=== PATIENT | female | born 1990 | race African-American/Black ===

== ENCOUNTER → 2018-11-16 | Outpatient (CLI) | payer OTHER ==
[~2018-11-16] MED LIST: IOHEXOL 240 MG/ML 50ML VIAL. PO ONE; IOHEXOL 300 MG/ML 100ML VIAL. IV ONE
[2018-11-16 10:18] LABS: CREATININE 0.7 mg/dL (0.6-1.0); GFR 119.7
--- NOTE | 2018-11-16 14:58 | RAD ---
CT ABD PELV W/ORAL IV CONTRAST Indication: VENTRAL HERNIA INJ 75ML OMNI 300 NO PREV Exposure: One or more of the following individualized dose reduction techniques were utilized for this examination: 1. Automated exposure control 2. Adjustment of the mA and/or kV according to patient size 3. Use of iterative reconstruction technique. Comparison: None are available. Contrast: Intravenous contrast was given. Oral contrast was given. FINDINGS: Lower thorax: Lung bases are clear. Liver: Unremarkable Spleen: Unremarkable Pancreas: Unremarkable Adrenals: No evidence of mass. Kidneys: Small hypodense lesion lower pole right kidney measures 12 mm, too small to accurately characterize, but may represent a cyst. Urinary tracts: No hydronephrosis. Gallbladder: No calcified stone Lymph nodes: No significant enlargement Vessels: Aorta is nonaneurysmal. GI tract: No evidence of acute colitis. No evidence of bowel obstruction. Appendix is normal. Reproductive organs: Low densities in the adnexa, largest on the left measures 22 mm, compatible with a cyst. Urinary bladder: Unremarkable. Peritoneum: No evidence of pneumoperitoneum. No free fluid. Abdominal wall: Thinning of the anterior abdominal wall with protruding mesenteric fat and bowel, but no focal or narrow necked herniation. Spine: Vertebral body height and alignment are intact. Bones: No destructive process identified. External Soft Tissue: No acute findings. IMPRESSION: 1. Thinning of the anterior abdominal wall at the midline with a broad necked protrusion of mesenteric fat and bowel. 2. Small indeterminant lesion at the lower pole the right kidney, may represent a cyst. Electronically signed by: Andrey Lange MD (11/16/2018 2:55 PM) [facility]
== END | disposition home or self-care (01) ==
LOC: CT 09:13
PROVIDERS: ATTEND Surgery
DX: K43.9 Ventral hernia without obstruction or gangrene (principal); N28.89 Other specified disorders of kidney and ureter
CPT/HCPCS: 36415; 74177; 82565; 84520; Q9966; Q9967

== ENCOUNTER → 2019-08-25 | Outpatient (CLI) | payer MEDICAID, OTHER ==
--- NOTE | 2019-08-25 13:17 | RAD ---
EXAM: Abdomen sonogram. HISTORY: Pain. TECHNIQUE: Sonographic imaging of the abdomen was performed. COMPARISON: None. FINDINGS: The liver is enlarged. There is hepatic steatosis. No focal hepatic lesion is seen. The common bile duct is normal in caliber. The gallbladder is unremarkable. The right kidney is partially obscured due to body habitus. There is no hydronephrosis. The pancreas, spleen and inferior cava are unremarkable. There is aortic atherosclerosis. IMPRESSION: 1. Hepatomegaly and hepatic steatosis. 2. Suboptimal evaluation of the right kidney due to body habitus. Electronically signed by: Chichi Araujo MD (08/25/2019 1:14 PM) [id number]
== END | disposition home or self-care (01) ==
LOC: US 12:04
PROVIDERS: ATTEND Family Medicine
DX: R16.0 Hepatomegaly, not elsewhere classified (principal); K76.0 Fatty (change of) liver, not elsewhere classified; I70.0 Atherosclerosis of aorta
CPT/HCPCS: 76700

== ENCOUNTER → 2020-02-09 | Outpatient (CLI) | payer MEDICAID, OTHER ==
[2020-02-09 13:56] LABS: BASO % 1 % (0-3); EOS # 0.1 x10^3/uL (0.0-0.7); EOS % 2 % (0-3); HEMATOCRIT 32.4 % (36.0-47.0); HEMOGLOBIN 10.4 g/dL (12.0-15.5); LYMPH % 31 % (24-48); MEAN CORPUSCULAR HEMOGLOBIN 24 pg (25-35); MEAN CORPUSCULAR HGB CONC 32 g/dL (31-37); MEAN CORPUSCULAR VOLUME 74 fL (79-100); MONO # 0.5 x10^3/uL (0.0-1.1); MONO % 8 % (0-9); NEUT # 3.7 x10^3/uL (1.8-7.7); NEUT % 58 % (31-73); PLATELET COUNT 375 x10^3/uL (140-400); RED BLOOD COUNT 4.39 x10^6/uL (3.50-5.40); RED CELL DISTRIBUTION WIDTH 16.4 % (11.5-14.5); WHITE BLOOD COUNT 6.3 x10^3/uL (4.0-11.0)
== END | disposition home or self-care (01) ==
LOC: LAB 13:15
PROVIDERS: ATTEND Obstetrics & Gynecology
DX: O34.219 Maternal care for unspecified type scar from previous cesarean delivery (principal); Z3A.00 Weeks of gestation of pregnancy not specified
CPT/HCPCS: 36415; 81220; 85025; 85660; 86592; 86703; 86762; 86850; 86900; 86901; 87340

== ENCOUNTER → 2020-05-17 | Outpatient (CLI) | payer OTHER ==
--- NOTE | 2020-05-17 14:13 | RAD ---
EXAM: Obstetrics sonogram. HISTORY: Uterine size and dates discrepancy. TECHNIQUE: Sonographic imaging of a gravid uterus was performed. COMPARISON: None. FINDINGS: There is a single intrauterine fetus in breech presentation with a normal heart rate of 160 bpm. There is a three-vessel umbilical cord. There is a four-chamber heart. stomach, kidneys, bladder, spine and brain are unremarkable. The cervix is closed and measures 5.3 cm in length. The amniotic fluid index is normal at 10.6 cm. There is a posterior placenta without evidence of placenta previa. The biparietal diameter is 4.99 cm, corresponding with 21 weeks and 1 day. The head circumference is 18.27 cm, corresponding with 20 weeks and 5 days. The abdominal circumference is 15.63 cm, corresponding with 20 weeks and 6 days. The femoral length is 3.66 cm, corresponding with 21 weeks and 4 days. The estimated gestational age patient combined also measurements is 21 weeks and 1 day and estimated weight is 401 g. IMPRESSION: Single intrauterine fetus in breech presentation with a normal heart rate and gestational age based on ultrasound measurements of 21 weeks and 1 day. Electronically signed by: Chichi Araujo MD (05/17/2020 2:10 PM) [facility]
== END ==
LOC: US 11:54
PROVIDERS: ATTEND Obstetrics & Gynecology
DX: O32.1XX0 Maternal care for breech presentation, not applicable or unspecified (principal); Z3A.21 21 weeks gestation of pregnancy
CPT/HCPCS: 76805

== ENCOUNTER → 2020-07-12 | Outpatient (CLI) | payer OTHER | END | disposition home or self-care (01) | LOC: LAB 12:02 | PROVIDERS: ATTEND Obstetrics & Gynecology | DX: O09.90 Supervision of high risk pregnancy, unspecified, unspecified trimester (principal); Z3A.00 Weeks of gestation of pregnancy not specified | CPT/HCPCS: 36415; 82950 ==

== ENCOUNTER 2021-08-11 08:58 | Emergency (ER) | payer OTHER | END 2021-08-11 11:18 | disposition left against medical advice (07) | LOC: ER 08:58 | DX: T78.40XA Allergy, unspecified, initial encounter (principal); Z53.21 Procedure and treatment not carried out due to patient leaving prior to being seen by health care provider ==